=== PATIENT | female | born 1975 | race Hispanic/Latino ===

== ENCOUNTER → 2021-10-04 | Outpatient (CLI) | payer BC ==
[~2021-10-04] MED LIST: IOPAMIDOL 370 MG/ML 200 ML INFUS..BTL INJ ONE; METOPROLOL TARTRATE 25 MG TAB ONE; METOPROLOL TARTRATE INJ 1 MG/ML VIAL ONE; NITROGLYCERIN 0.4 MG SUBL ONE; SODIUM CHLORIDE 0.9% 100 ML ONE
[2021-10-04 08:56] LABS: CREATININE, SERUM 0.72 mg/dL (0.57-1.11)
== END ==
LOC: CT 08:12
PROVIDERS: ATTEND Internal Medicine Cardiovascular Disease
DX: R07.9 Chest pain, unspecified (principal)
CPT/HCPCS: 36415; 75574; 81025; 82565; 84520; J7050; Q9967